=== PATIENT | female | born 1990 | race Two or more races ===

== ENCOUNTER 2016-10-17 11:08 | Emergency (ER) | payer MEDICAID ==
[~2016-10-17] VITALS: Ht 167.6 cm; Wt 81.6 kg
[2016-10-17 11:55] LABS: Basophils % (auto) 0.4 % (0.0-2.0); Eosinophils % (auto) 0.9 % (0.0-7.0); Lymphocytes % (auto) 28.4 % (10.0-50.0); Monocytes % (auto) 8.2 % (0.0-12.0); Neutrophils % (auto) 62.1 % (37.0-80.0); White Blood Cell 9.4 10^3/uL (4.4-10.8)
[2016-10-17 11:56] LABS: Basophils # (auto) 0 uL; CONDITION Y; Eosinophils # (auto) 0.1 uL; Hematocrit 39.8 % (36.0-46.0); Hemoglobin 13.4 g/dL (12.2-16.2); Lymphocytes # (auto) 2.7 uL; Mean Corpuscular Hemoglobin 29.5 pg (28.0-32.0); Mean Corpuscular Hgb Conc. 33.7 g/dL (32.0-36.0); Mean Corpuscular Volume 87.8 fL (80.0-100.0); Monocytes # (auto) 0.8 uL; Neutrophils # (auto) 5.8 uL; Platelet Count (auto) 183 10^3/uL (140-450); Red Cell Distribution Width 14.1 % (11.6-16.0)
[2016-10-17 12:02] LABS: Albumin 3.5 g/dL (3.4-5.0); BUN/Creatinine Ratio 17.3; Bilirubin, Total 0.2 mg/dL (0.2-1.0); Calcium 8.7 mg/dL (8.5-10.1); Potassium 4.1 mmol/L (3.5-5.1); Total Protein 7.2 g/dL (6.4-8.2)
[2016-10-17 12:23] VITALS: BP 124/78
[2016-10-17 12:39] LABS: Urine Bilirubin Negative (Negative); Urine Color Yellow (Yellow); Urine Glucose Normal (Normal); Urine Ketone Negative (Negative); Urine Nitrite Negative (Negative); Urine RBC 17 /hpf (0 - 4); Urine Squamous Epithelial Cell FEW /hpf (<5); Urine Urobilinogen Normal (Negative); Urine pH 5.5 (5.0-8.0)
[2016-10-17 12:40] LABS: Urine Blood 2+ /uL (Negative)
== END 2016-10-17 13:05 | disposition home or self-care (01) ==
LOC: ER 11:08
DX: O20.0 Threatened abortion (principal); Z3A.01 Less than 8 weeks gestation of pregnancy
CPT/HCPCS: 36415; 76801; 76817; 80053; 81001; 84702; 85025

== ENCOUNTER 2016-10-19 16:24 | Emergency (ER) | payer MEDICAID ==
[~2016-10-19] VITALS: Ht 167.6 cm; Wt 81.6 kg
[2016-10-19 16:30] VITALS: BP 142/78
== END 2016-10-19 17:56 | disposition home or self-care (01) ==
LOC: ER 16:32
DX: O03.9 Complete or unspecified spontaneous abortion without complication (principal); Z3A.00 Weeks of gestation of pregnancy not specified
CPT/HCPCS: 36415; 84702